=== PATIENT | female | born 1930 | race Caucasian/White ===

== ENCOUNTER 2017-01-09 17:36 | Observation (INO) | payer MEDICARE, BC ==
[~2017-01-09] VITALS: Ht 154.9 cm; Wt 77.7 kg
--- NOTE | ~2017-01-09 | HP ---
PATIENT: NINA CARBALLO MEDICAL RECORD: [id number] ACCOUNT: [id number] LOCATION:[id number] : 32 ADMISSION DATE: 01/09/17 HISTORY AND PHYSICAL EXAMINATION DATE OF ADMISSION: 01/09/2017 CHIEF COMPLAINT: Fatigue and anemia. HISTORY OF PRESENT ILLNESS: This is an 86-year-old female, who was admitted to [facility] in August of the last year with fatigue, near syncope and microcytic anemia. Her hemoglobin was 5.1 and hematocrit 18.8 with MCV of 73. At that time, she was found to have iron level of 10 and a TIBC greater than 500. She was given a transfusion of packed red blood cells. She had an EGD that was essentially unremarkable. She had heme-positive stool. She then underwent a colonoscopy on September 02 showing 2 small polyps. No other sign of bleeding and she was discharged home, only to come back later in the day with abdominal pain and at that time, a CT of the abdomen showed a large amount of free air throughout the abdomen and suggestion of bowel perforation. She was treated nonsurgically and did well with this. I referred her to Dr. Patterson in late September. She saw him the of this year and she has undergone a weekly iron treatments and then unfortunately, her hemoglobin has gone from 9.2 ____ in September down to 7.3. Her MCV is normal. She did have symptomatic anemia and because this it is Thursday evening, was unable to get her transfused in outpatient. We will admit her to observation to give her blood transfusion now. PAST MEDICAL AND SURGICAL HISTORY: Diverticular abscess in 2012. She underwent a hand-assisted laparoscopic colectomy by Dr. Crawford. She had an appendectomy in 1951. Complete hysterectomy in 1983 and right rotator cuff tear in 2010. ALLERGIES: CIPRO CAUSES TENDINITIS. CURRENT MEDICATIONS: Aspirin 81 mg a day, omeprazole 20 mg a day. She was recently started on Augmentin 500 mg 3 times a day for a dental infection. SOCIAL HISTORY: in 2010. She is a retired lab specialist. HABITS: Never smoked. No alcohol or drugs. FAMILY HISTORY: Father at 88 of laryngeal cancer. Mother at 88 of colon cancer. Her sister at 72 of a brain tumor and brother with heart disease and some sort of cancer. REVIEW OF SYSTEMS: GENERAL: No major weight changes. HEENT: No sinus or allergy problems. RESPIRATORY: No history of emphysema or asthma. CARDIAC: She has had some arrhythmia, followed by Dr. Shelley. GASTROINTESTINAL: As above, she underwent a diverticular abscess 3 years ago and in the last years, EGD and colonoscopy. MUSCULOSKELETAL: Right rotator cuff tear that was repaired. NEUROLOGIC: No seizures or migraine headaches. PSYCHIATRIC: No depression or melancholia. PHYSICAL EXAMINATION: HISTORY AND PHYSICAL [id number] NINA CARBALLO VITAL SIGNS: Temperature 98.1, pulse 79, respirations 20, blood pressure 123/62. She does not appear in acute distress. GENERAL: She is pale looking. She cannot walk very far due to fatigue. HEENT: Unremarkable. NECK: Supple. No bruit. HEART: Regular rate and rhythm without murmur. LUNGS: Clear. ABDOMEN: Soft, flat, nontender. EXTREMITIES: No edema. LABORATORY DATA: CBC in our office showed a white count 7000, hemoglobin 7.3, hematocrit 25.2, MCV is 81, platelets numbered at 298,000. Basic metabolic panel done in the hospital is essentially unremarkable. LFTs were okay. ASSESSMENT: 1. Symptomatic anemia. 2. History of iron deficiency anemia, treated with iron by Dr. Patterson. PLAN: We will type and cross, transfuse 2 units packed red blood cells and hopefully go home tomorrow to follow back up with Dr. Patterson next week. Other tests or procedures as warranted. TRANSINT:[id number] Voice Confirmation ID: [id number] DOCUMENT ID: [id number] YARELY MONTES MD CC: [id number] DICTATION DATE: 01/09/172118 [place] REPRESENTATIVE: 01/09/172233 ADM IN [place] [id number] [place] [id number]
[~2017-01-09 17:36] MED LIST: BAYER CHEWABLE81 MG PO; METOPROLOL TART25 MG PO; NIFEREX-150 CAP1 CA3 PO; OMEPRAZOLE20 M1 PO; XANAX0.25 MG PO
[2017-01-09 18:16] VITALS: BP 122/58; Ht 154.9 cm; Wt 77.7 kg
--- NOTE | 2017-01-09 19:30 | NUR ---
PT RECEIVED SITTING UP IN BED WATCHING TELEVISION WITH DAUGHTER AT BED SIDE. PT IS ALERT AND ORIENTED X4. SEE SHIFT ASSESSMENTS. IV SALINE LOCKED NOTED TO RIGHT WRIST, DRESSING CLEAN, DRY, AND INTACT, NO REDNESS OR EDEMA NOTED TO SITE. PT DENIES OR NEEDS AT THIS TIME. CALL LIGHT AND H2O IN PT REACH. BED IN LOW POSITION. SIDE RAILS UP X2.
[2017-01-09 19:31] LABS: ALBUMIN 3.3 g/dL (3.4-5.0); ANION GAP 12.5 mmol/L (8-16); BILIRUBIN - TOTAL 0.22 mg/dL (0.2-1.3); CARBON DIOXIDE 27.5 mmol/L (21.0-32.0); CREATININE - SERUM 0.9 mg/dL (0.6-1.3); PROTEIN - SERUM 6.2 g/dL (6.4-8.2)
[2017-01-09 20:00] VITALS: BP 123/62
--- NOTE | 2017-01-09 21:30 | NUR ---
PT SITTING UP IN BED WATCHING TELEVISION. NO S/S OF DISTRESS NOTED. RESP EVEN AND UNLABORED. PT DENIES PAIN OR NEEDS AT THIS TIME. PT REFUSES 2100 AUGMENTIN, STATES SHE TOOK DOSE ALREADY FROM HOME SUPPLY. STATES THAT AUGMENTIN WAS ORIGINALLY PROSCRIBED BY HER DENTIST AND SHE HAS COMPLETED THE COURSE. CALL LIGHT AND H2O IN PT REACH. BED IN LOW POSITION. SIDE RAILS UP X2.
--- NOTE | 2017-01-09 23:30 | NUR ---
PT SITTING UP IN BED WATCHING TELEVISION. PT CURRENTLY RECEIVING PRBC THROUGH IV TO RIGHT WRIST. NO S/S OF DISTRESS NOTED. VITAL SIGNS BEING MONITORED PER PROTOCOL. PLEASANT MOOD NOTED AT THIS TIME. PT AWARE OF ORDERS TO COLLECT STOOL FOR OCCULT, PT STATES, "I WILL LET YOU KNOW WHEN I HAVE A BOWEL MOVEMENT. RIGHT NOW I DON'T FEEL LIKE I NEED TO GO." CALL LIGHT AND H2O IN PT REACH. SIDE RAILS UP X2. BED IN LOW POSITION.
--- NOTE | 2017-01-10 01:30 | NUR ---
PT SITTING UP IN BED WATCHING TELEVISION. NO S/S OF DISTRESS NOTED. PT CONTINUES TO RECEIVED PRBC THROUGH IV TO RIGHT WRIST. VITAL SIGNS OBTAINED PER PROTOCOL. PLEASANT MOOD NOTED AT THIS TIME. CALL LIGHT AND H2O IN PT REACH. BED IN LOW POSITION. SIDE RAILS UP X2.
--- NOTE | 2017-01-10 03:30 | NUR ---
PT CONTINUES WITH BLOOD TRANSFUSION. NO S/S OF DISTRESS NOTED. RESPIRATIONS EVEN AND UNLABORED. PT ABLE TO VOICE NEEDS, NO COMPLAINTS OR NEEDS VOICED AT THIS TIME. ATTEMPTED TRANSFUSION RATE @ 125, PT C/O PAIN/DISCOMFORT TO IV SITE AND FEAR OF VEIN "BLOWING". TRANSFUSION LOWERED TO 100, PT STATES IV SITE FELT BETTER.
[2017-01-10 04:00] VITALS: BP 117/69
--- NOTE | 2017-01-10 04:00 | NUR ---
PATIENT SLEEPING WITH NO DISTRESS NOTED. CALL LIGHT WITHIN REACH.
--- NOTE | 2017-01-10 05:15 | NUR ---
PT TRANSFUSION STOPPED D/T TRANSFUSION REACHING 4 HOURS. 1/4 BAG NOTED TO BE LEFT. SALINE NOTED TO BE UNCLAMPED. NOTIFIED LAB, INSTRUCTED TO DISPOSE OF REMAINING BLOOD IN SHARPS. PT APPEARS TO BE UPSET. STATES, "I CAN'T PRODUCE MY OWN BLOOD. EVERY LITTLE BIT COUNTS!" THIS THREAD DRAWER EXPLAINED TO PT THAT BLOOD TRANSFUSION COULD NOT GO LONGER THAN 4 HOURS. PT VERBALIZED UNDERSTANDING. PT CONTINUES TO APPEAR UPSET AND STATES, "I WANT THE DOCTOR TO KNOW HOW MUCH BLOOD IS LEFT IN THAT BAG." INFORMED PT THAT EXACT AMOUNT COULD NOT BE MEASURED BUT VOLUME INFUSED IS RECORDED. PT VERBALIZED UNDERSTANDING. INFORMED PT THAT DOCTOR WILL BE NOTIFIED AND LABS WILL BE DRAWN WELL. PT VERBALIZED UNDERSTANDING. CALL LIGHT AND H2O IN PT REACH. BED IN LOW POSITION. SIDE RAILS UP X2.
[2017-01-10 07:41] LABS: BASOPHILS 1.2 % (0.0-2.0); EOSINOPHILS 4.4 % (0-7); HEMATOCRIT 29.2 % (36.0-48.0); HEMOGLOBIN 9.2 g/dL (12-16); IMMATURE GRANULOCYTES 0.5 % (0-5); LYMPHOCYTES 29.2 % (15-50); MCH 25.3 pg (26.0-34.0); MCHC 31.5 g/dL (31.0-37.0); MCV 80.2 fL (80.0-100.0); MEAN PLATELET VOLUME 9.4 fL (7.4-10.4); MONOCYTES 9.7 % (2-11); RBC 3.64 10x6/uL (4.00-5.40); RDW 16.3 % (11.5-14.5); WBC 4.3 10x3/uL (4.8-10.8)
[2017-01-10 07:47] LABS: PLATELET COUNT 214 10x3/uL (130-400)
--- NOTE | 2017-01-10 07:59 | NUR ---
PATIENT AWAKE/ORIENT X4. RIGHT WRIST SALINE LOCKED. DENIES ANY PAIN/DISC AT THIS TIME. NEEDS STOOL FOR OCCULT BLOOD
[2017-01-10 08:38] VITALS: BP 124/74; BP 128/47
--- NOTE | 2017-01-10 09:19 | NUR ---
PRN ATIVAN GIVEN FOR ANXIEITY
--- NOTE | 2017-01-10 10:00 | NUR ---
DR MONTES INTO SEE PATIENT. DISCHARGE INSTRUCTIONS GIVEN
--- NOTE | 2017-01-10 12:31 | NUR ---
PATIENTS DAUGHTER HERE TO TAKE PATIENT HOME. DISCHARGE INSTRUCTIONS GONE OVER WITH PATIENT AND DAUGHTER. PATIENT HELPED OUT TO CAR BY STAFF
== END 2017-01-10 12:33 | disposition home or self-care (01) ==
LOC: D.MS 17:36 → OBSVTIME 17:36 → D.MS 01-10 12:33
PROVIDERS: ADMIT Family Medicine
DX: D64.9 Anemia, unspecified (principal)

== ENCOUNTER 2017-02-12 12:51 | Outpatient (CLI) | payer MEDICARE, BC ==
[2017-02-12] MEDS ORDERED: LOPRESSOR25 MG PO (15:08)
== END 2017-02-12 21:44 | disposition home or self-care (01) ==
LOC: D.LAB 12:51 → D.M2 20:10
DX: D50.9 Iron deficiency anemia, unspecified (principal)

== ENCOUNTER → 2017-02-19 08:59 | Outpatient (CLI) | payer MEDICARE, BC ==
[~2017-02-19 08:59] MED LIST changes: +LOPRESSOR25 MG PO
[2017-02-19 09:17] LABS: EOSINOPHILS 2.8 % (0-7); HEMATOCRIT 30.9 % (36.0-48.0); HEMOGLOBIN 9.2 g/dL (12-16); IMMATURE GRANULOCYTES 0.2 % (0-5); LYMPHOCYTES 25.9 % (15-50); MCH 23.5 pg (26.0-34.0); MCHC 29.8 g/dL (31.0-37.0); MCV 78.8 fL (80.0-100.0); MEAN PLATELET VOLUME 9.7 fL (7.4-10.4); MONOCYTES 7.3 % (2-11); NEUTROPHILS 62.8 % (40-80); PLATELET COUNT 209 10x3/uL (130-400); RBC 3.92 10x6/uL (4.00-5.40); RDW 19.1 % (11.5-14.5)
== END | disposition home or self-care (01) ==
LOC: D.LAB 08:59 → D.RAD 09:30
PROVIDERS: Internal Medicine Gastroenterology
DX: D64.9 Anemia, unspecified (principal)

== ENCOUNTER 2017-03-03 07:19 | Outpatient (CLI) | payer MEDICARE, BC ==
[~2017-03-03] VITALS: Ht 154.9 cm; Wt 77.3 kg
[2017-03-03 08:17] VITALS: BP 106/59; Ht 154.9 cm; Wt 77.3 kg
--- NOTE | 2017-03-03 09:35 | NUR ---
PATIENT TOLERATING BLOOD TRANSFUSION WITHOUT DIFFICULTY, LYING IN BED, DENIES COMPLAINTS OR NEEDS, BLOOD TRANSFUSING TO LEFT HAND PIV AT 175 CC/HR CURRENTLY
--- NOTE | 2017-03-03 13:25 | NUR ---
POST TRANSFUSION INSTRUCTIONS REVIEWED WITH PATIENT, PATIENT DENIES ANY UNTOWARD SYMPTOMS, NO SIGNS OF DYSPNEA, FEVER, OR BLEEDING. LEFT HAND PIV DC'D WITH TIP INTACT. PATIENT DISCHARGED HOME AMBULATORY WITH DAUGHTER
== END 2017-03-03 13:25 | disposition home or self-care (01) ==
LOC: D.OPS 07:19
DX: D64.9 Anemia, unspecified (principal)

== ENCOUNTER → 2017-03-20 10:56 | Outpatient (CLI) | payer MEDICARE, BC ==
[2017-03-03 08:17] VITALS: BMI 32.2
== END | disposition home or self-care (01) ==
LOC: D.US 10:56 → D.CT 13:00
DX: D50.9 Iron deficiency anemia, unspecified (principal)

== ENCOUNTER 2017-03-31 06:24 | Outpatient (CLI) | payer MEDICARE, BC ==
[~2017-03-31] VITALS: Ht 154.9 cm; Wt 75.0 kg
[2017-03-31 07:23] LABS: HEMATOCRIT 32.4 % (36.0-48.0); HEMOGLOBIN 10.3 g/dL (12-16); LYMPHOCYTES 26.5 % (15-50); MCH 28.5 pg (26.0-34.0); MCHC 31.8 g/dL (31.0-37.0); MCV 89.8 fL (80.0-100.0); NEUTROPHILS 64.2 % (40-80); PLATELET COUNT 214 10x3/uL (130-400); RBC 3.61 10x6/uL (4.00-5.40); RDW 28.1 % (11.5-14.5); WBC 3.7 10x3/uL (4.8-10.8)
[2017-03-31 07:26] LABS: APTT 33.1 SECONDS (22.8-39.4); INR 1.07 (0.85-1.17); PROTIME 13.7 SECONDS (11.6-15.0)
[2017-03-31 07:27] LABS: ANION GAP 11.8 mmol/L (8-16); CALCIUM 9.5 mg/dL (8.5-10.1); CARBON DIOXIDE 26.3 mmol/L (21.0-32.0); CREATININE - SERUM 0.8 mg/dL (0.6-1.3); POTASSIUM - SERUM 4.1 mmol/L (3.5-5.1)
[2017-03-31 07:38] VITALS: BP 106/50; Ht 154.9 cm; Wt 75.0 kg
--- NOTE | 2017-03-31 14:26 | NUR ---
VS TAKEN AND PLACE ON POST OP SHEET AND PLACE ON CHART
--- NOTE | 2017-03-31 16:12 | NUR ---
1515 IV DC WITH CATHER TIP INTACT
== END 2017-03-31 15:30 | disposition home or self-care (01) ==
LOC: D.CT 06:24
PROVIDERS: General Practice
DX: R16.0 Hepatomegaly, not elsewhere classified (principal)

== ENCOUNTER → 2017-04-08 09:33 | Outpatient (CLI) | payer MEDICARE, BC ==
[2017-03-31 07:38] VITALS: BMI 31.2
== END | disposition home or self-care (01) ==
LOC: D.MRI 09:33
DX: D50.9 Iron deficiency anemia, unspecified (principal)

== ENCOUNTER 2017-04-10 07:23 | Outpatient (CLI) | payer MEDICARE, BC ==
[~2017-04-10] VITALS: Ht 154.9 cm; Wt 75.3 kg
[2017-04-10 08:04] LABS: BASOPHILS 1.1 % (0-2); EOSINOPHILS 4.8 % (0-7); HEMOGLOBIN 11.1 g/dL (12-16); IMMATURE GRANULOCYTES 0.3 % (0-5); MCH 29.5 pg (26.0-34.0); MCHC 31.7 g/dL (31.0-37.0); MCV 93.1 fL (80.0-100.0); MEAN PLATELET VOLUME 9.4 fL (7.4-10.4); MONOCYTES 7.6 % (2-11); NEUTROPHILS 61.2 % (40-80); RBC 3.76 10x6/uL (4.00-5.40); RDW 24.1 % (11.5-14.5); WBC 3.6 10x3/uL (4.8-10.8)
[2017-04-10 08:05] LABS: PLATELET COUNT 162 10x3/uL (130-400)
[2017-04-10 08:14] LABS: ANION GAP 13.6 mmol/L (8-16); APTT 32.4 SECONDS (22.8-39.4); CALCIUM 9.7 mg/dL (8.5-10.1); CARBON DIOXIDE 24.5 mmol/L (21.0-32.0); CREATININE - SERUM 0.8 mg/dL (0.6-1.3); INR 1.01 (0.85-1.17); POTASSIUM - SERUM 4.1 mmol/L (3.5-5.1); PROTIME 13.1 SECONDS (11.6-15.0)
[2017-04-10 08:20] VITALS: BP 131/82; Ht 154.9 cm; Wt 75.3 kg
--- NOTE | 2017-04-10 13:36 | NUR ---
1145--ALL VITAL SIGNS CHARTED ON POST PROCEDURE VITAL SIGN SHEET IN CHART. NASRA BAILEY
--- NOTE | 2017-04-10 15:34 | NUR ---
1530--IV DC'D, PT UP TO DRESS AT THIS TIME. NASRA BAILEY
--- NOTE | 2017-04-10 15:38 | NUR ---
1540--DISCHARGE INSTRUCTIONS GIVEN, PT VERBALIZES UNDERSTANDING. PT OFF UNIT VIA IBIS. NASRA BAILEY
== END 2017-04-10 15:40 | disposition home or self-care (01) ==
LOC: D.OPS 07:23 → D.CT 10:00 → D.SP 10:00 → D.OPS 10:00 → D.SP 11:00 → D.OPS 15:40
PROVIDERS: Specialist
DX: K76.9 Liver disease, unspecified (principal); K21.9 Gastro-esophageal reflux disease without esophagitis; R00.0 Tachycardia, unspecified; D50.9 Iron deficiency anemia, unspecified; R53.83 Other fatigue; Z18.10 Retained metal fragments, unspecified; Z01.811 Encounter for preprocedural respiratory examination; Z01.812 Encounter for preprocedural laboratory examination

== ENCOUNTER 2017-05-12 06:43 | Inpatient (IN) | payer MEDICARE, BC ==
[2017-05-11 11:46] LABS: BASOPHILS 1.2 % (0-2); EOSINOPHILS 4.4 % (0-7); HEMATOCRIT 33.4 % (36.0-48.0); HEMOGLOBIN 10.9 g/dL (12-16); MCH 30.6 pg (26.0-34.0); MCHC 32.6 g/dL (31.0-37.0); MCV 93.8 fL (80.0-100.0); MEAN PLATELET VOLUME 9.1 fL (7.4-10.4); MONOCYTES 7.9 % (2-11); NEUTROPHILS 61.5 % (40-80); RBC 3.56 10x6/uL (4.00-5.40); RDW 16.4 % (11.5-14.5); WBC 4.3 10x3/uL (4.8-10.8)
[2017-05-11 11:47] LABS: PLATELET COUNT 207 10x3/uL (130-400)
[2017-05-11 11:59] LABS: CALC OSMOLALITY 282 mosm/kg (275-300); CALCIUM 8.9 mg/dL (8.5-10.1); CARBON DIOXIDE 23.6 mmol/L (21.0-32.0); CHLORIDE - SERUM 107 mmol/L (98-107); CREATININE - SERUM 0.6 mg/dL (0.6-1.3); GLUCOSE 99 mg/dL (74-106); POTASSIUM - SERUM 3.9 mmol/L (3.5-5.1); SODIUM 142 mmol/L (136-145); UREA NITROGEN 13 mg/dL (7-18); eGFR NON AFRICAN AMERICAN > 90 mL/min (90-120)
[2017-05-11 12:01] LABS: APTT 34.2 SECONDS (22.8-39.4); INR 1.05 (0.85-1.17); PROTIME 13.6 SECONDS (11.6-15.0)
[~2017-05-12] VITALS: Ht 154.9 cm; Wt 77.1 kg
[~2017-05-12 06:43] MED LIST changes: +VITAMIN B-121000 MCG PO
--- NOTE | 2017-05-12 07:54 | NUR ---
0754 PT STATES NO CHANGES IN HEALTH HISTORY ASSESSMENT SINCE INTERVIEWED 05/11/17. STATES LAST BM 05/12/17. Tiffanie LA R.N.
[2017-05-12 07:58] VITALS: BP 132/69; BMI 31.4
--- NOTE | 2017-05-12 15:07 | NUR ---
1505 REPORT PHONED TO SAHIL COTE RN.
--- NOTE | 2017-05-12 17:22 | NUR ---
1721 REPORT TO DAHLIA MONZON RN TO [id number] VIA [facility]
[2017-05-12 20:00] VITALS: BP 111/57
--- NOTE | 2017-05-12 20:00 | NUR ---
ASSESSMENT PER FLOWSHEET.IV PATENT LEFT HAND PF NS AT 125CC'S/HR SITE CLEAR. CRUSHER WET GROUND MICA DILAUDID 0.2MG Q10MIN W/4MG Q4H L/O. DAUGHTER IN ROOM DRESSING TO ABDOMEN C/D/I. SCD'S ON. SR UP X2 CALL LIGHT WITHIN REACH
--- NOTE | 2017-05-12 21:30 | NUR ---
HOB UP 35 DEGREES SR UP X2 CALL LIGHT WITHIN REACH. DENIES NEEDS.
[2017-05-13] VITALS: BP 106/58
--- NOTE | 2017-05-13 | NUR ---
PLACED ON BEDPAN VOIDS WELL TURNS SIDE TO SIDE. DAUGHTER IN ROOM.
--- NOTE | 2017-05-13 01:25 | NUR ---
C/O NAUSEA NO EMESIS SEEN ZOFRAN 4 MG IVP GIVEN FOR PAIN CONTROL.
[2017-05-13 01:42] VITALS: BMI 32.2
--- NOTE | 2017-05-13 03:27 | NUR ---
EYES CLOSED RESPIRATIONS WITH EASE AND UNLABORED.
[2017-05-13 03:47] VITALS: BP 107/58
[2017-05-13 05:19] LABS: BASOPHILS 0.2 % (0-2); EOSINOPHILS 0 % (0-7); HEMATOCRIT 28.1 % (36.0-48.0); HEMOGLOBIN 8.9 g/dL (12-16); IMMATURE GRANULOCYTES 0.2 % (0-5); LYMPHOCYTES 13.6 % (15-50); MCH 30.2 pg (26.0-34.0); MCHC 31.7 g/dL (31.0-37.0); MCV 95.3 fL (80.0-100.0); MEAN PLATELET VOLUME 9.4 fL (7.4-10.4); MONOCYTES 7.5 % (2-11); NEUTROPHILS 78.5 % (40-80); PLATELET COUNT 189 10x3/uL (130-400); RBC 2.95 10x6/uL (4.00-5.40); RDW 16.2 % (11.5-14.5)
[2017-05-13 05:20] LABS: WBC 5.5 10x3/uL (4.8-10.8)
[2017-05-13 05:37] LABS: CALC OSMOLALITY 280 mosm/kg (275-300); CALCIUM 8.4 mg/dL (8.5-10.1); CARBON DIOXIDE 23.7 mmol/L (21.0-32.0); CHLORIDE - SERUM 108 mmol/L (98-107); CREATININE - SERUM 0.6 mg/dL (0.6-1.3); GLUCOSE 123 mg/dL (74-106); POTASSIUM - SERUM 4.2 mmol/L (3.5-5.1); SODIUM 141 mmol/L (136-145); UREA NITROGEN 11 mg/dL (7-18); eGFR NON AFRICAN AMERICAN > 90 mL/min (90-120)
--- NOTE | 2017-05-13 06:40 | NUR ---
RESTING QUIETLY RESPIRATIONS WITH EASE AND UNLABORED.
--- NOTE | 2017-05-13 07:30 | NUR ---
REPORT RECEIVED FROM LYNN ROSE.
--- NOTE | 2017-05-13 07:30 | NUR ---
REPORT RCEIVED FROM LYNN ROSE. CALL LIGHT IN REACH.
[2017-05-13 08:42] VITALS: BP 121/58
--- NOTE | 2017-05-13 09:05 | NUR ---
ASSESSMENT COMPLETED. CALL LIGHT IN REACH. SCDs OT BLE. BED ALARM TURNED ON. DR. MONTES AND VISITO IN ROOM. AM MEDS ADMINISTERE. CALL LIGNT IN REACH. WILL CONTINUE WITH PLAN OF CARE.
--- NOTE | 2017-05-13 09:47 | NUR ---
REPOSITIONED ON [facility] ASS[facility] FROM DR. CARABALLO. INCENTIVE SPIROMETER IN USE. BED ALARM ON. [facility].
[2017-05-13 11:59] VITALS: BP 127/55
[2017-05-13 12:27] VITALS: Ht 154.9 cm; Wt 77.1 kg
--- NOTE | 2017-05-13 13:32 | NUR ---
TYLENOL IVPB. NGT RETAPED TO NOSE.
--- NOTE | 2017-05-13 14:55 | NUR ---
PATIENT ALERT IN BED WITH PHYSICAL THERAPY AT BEDSIDE. NO SIGNS OF DISTRESS NOTED. SIDE RAILS UP X2. BED IN LOW POSITION. CALL LIGHT IN REACH.
[2017-05-13 15:10] VITALS: BP 112/55
--- NOTE | 2017-05-13 19:15 | NUR ---
BEDSIDE REPORT RECEIVED AND CARE OF PT ASSUMED. PT LYING IN SEMI CRUZ'S POSITION WITH EYES CLOSED. IV IN LEFT HAND PATENT WITH NS INFUSING AT 125 ML / HR. SCRIPT WORKER / DILAUDID IN USE FOR PAIN CONTROL. WILL MONITOR CLOSELY FOR NEEDS.
[2017-05-13 20:00] VITALS: BP 123/63
--- NOTE | 2017-05-13 20:15 | NUR ---
HELD IVPB TYLENOL PT HAS REACHED MAXIMUM ALLOWED ACETAMINOPHEN FOR THIS 24 HOUR PERIOD.
--- NOTE | 2017-05-13 22:30 | NUR ---
ASSISTED PT UP TO USE BSC WITH DAUGHTER'S HELP. WILL CONTINUE TO MONITOR FOR NEEDS.
[2017-05-14] VITALS: BP 122/60
[2017-05-14 04:00] VITALS: BP 123/72
--- NOTE | 2017-05-14 07:45 | NUR ---
PT ASSESSMENT COMPLETE NO ACUTE DISTRESS NOTED NGT TO LEFT NARE TO LIS PATENT TO DARK BROWN LIQUID NOTED TO TUBING. O2 NC 2LPM UP WITH ASSIST TO BEDSIDE COMMODE FOR BRP. CALL LIGHT IN REACH SIDE RAILS UP X2 SCDS IN PLACE
[2017-05-14 08:09] VITALS: BP 136/60
--- NOTE | 2017-05-14 10:51 | NUR ---
PT COMPLAINS OF HEAVINESS IN HER CHEST STATES NOTHING MAKES BETTER OR WORSEAND IS NOT RADIATING HOWEVER PT STATES IT IS A NEW FEELING SHES NEVER HAD BEFORE. NEW ORDER FOR EKG NOW
[2017-05-14 11:44] VITALS: BP 126/67
--- NOTE | 2017-05-14 12:00 | NUR ---
PT FAMILY AT BEDSIDE PT UP IN CHAIR AT THIS TIME STATES LESS TIGHTNESS IN CHEST PT AWAKE AND ALERT AWAITING EKG RESULT.
--- NOTE | 2017-05-14 14:00 | NUR ---
PT AMBULATES WITH THERAPY STAFF 500 FT WITH STAND BY ASSIST. DENEIS PAIN OR TIGHTNESS IN CHEST. BACK TO BED WITH NO DIFFICULTY SCDS IN PLACE.
--- NOTE | 2017-05-14 14:02 | NUR ---
PT LAYING IN BED WITH NO VISABLE SIGNS OF PAIN OR DISCOMFORT. PT EXPRESSES NO NEEDS AT THIS TIME. ASSESSMENT DONE PER FLOWSHEET. BED IN LOW POSITION AND CALL LIGHT WITHIN REACH. WILL CONTINUE TO MONITOR.
[2017-05-14 15:25] VITALS: BP 139/64
--- NOTE | 2017-05-14 17:17 | NUR ---
PT UP IN CHAIR AT BEDSIDE AT THIS TIME ENCOURAGED TO USE IS AND RE EDUCATED ON PROPER TECHNIQUE FOR USE RETURNS DEMONSTRATION AND ENCOURAGED TO COUGH WITH DEEP BREATHING USING SPLINT PILLOW
--- NOTE | 2017-05-14 19:00 | NUR ---
BEDSIDE REPORT RECEIVED AND CARE OF PT ASSUMED. IV IN LEFT HAND PATENT WITH NS INFUSING AT 125 ML / HR. NG TUBE TO LEFT NARE TO LIS WITH BLACKISH DRAINAGE IN COLLECTION CANNISTER. WILL MONITOR CLOSELY FOR NEEDS. DAUGHTER IS AT BEDSIDE.
--- NOTE | 2017-05-14 19:43 | NUR ---
CALLED DR HERNANDEZ TO REPORT WHEEZING IN ALL LUNG MEDINA. RECEIVED ORDER TO REDUCE IV FLUID RATE TO 75 ML / HR AND DUONEB Q2 HR PRN.
--- NOTE | 2017-05-14 19:45 | NUR ---
CALLED RESPIRATORY TO GIVE PT UPDRAFT TX.
[2017-05-14 20:00] VITALS: BP 137/70
--- NOTE | 2017-05-14 21:39 | NUR ---
HELD HS IV TYLENOL DUE TO MAXIMUM ACETAMINOPHEN LEVEL REACHED FOR TODAY.
[2017-05-15] VITALS: BP 154/69
[2017-05-15 04:00] VITALS: BP 142/70
[2017-05-15 05:33] LABS: HEMATOCRIT 24.2 % (36.0-48.0); HEMOGLOBIN 7.8 g/dL (12-16); LYMPHOCYTES 9.3 % (15-50); MCH 29.8 pg (26.0-34.0); MCHC 32.2 g/dL (31.0-37.0); MCV 92.4 fL (80.0-100.0); NEUTROPHILS 83.8 % (40-80); PLATELET COUNT 152 10x3/uL (130-400); RBC 2.62 10x6/uL (4.00-5.40); RDW 15.3 % (11.5-14.5); WBC 4.6 10x3/uL (4.8-10.8)
[2017-05-15 05:44] LABS: CALC OSMOLALITY 276 mosm/kg (275-300); CALCIUM 8.5 mg/dL (8.5-10.1); CARBON DIOXIDE 22.9 mmol/L (21.0-32.0); CHLORIDE - SERUM 104 mmol/L (98-107); CREATININE - SERUM 0.5 mg/dL (0.6-1.3); GLUCOSE 103 mg/dL (74-106); MAGNESIUM - SERUM 1.7 mg/dL (1.8-2.4); PHOSPHOROUS 2.2 mg/dL (2.5-4.9); POTASSIUM - SERUM 3.1 mmol/L (3.5-5.1); SODIUM 140 mmol/L (136-145); UREA NITROGEN 8 mg/dL (7-18); eGFR NON AFRICAN AMERICAN > 90 mL/min (90-120)
--- NOTE | 2017-05-15 06:36 | NUR ---
ALL NEEDS MET DURING SHIFT. CONTINUE PLAN OF CARE.
--- NOTE | 2017-05-15 08:12 | OP ---
PATIENT NAME: NINA CARBALLO MEDICAL RECORD: [id number] :32 LOCATION:[id number] ADMISSION DATE:05/12/17 SURGEON: ERROL HERNANDEZ MD DATE OF OPERATION: 05/12/2017 PREOPERATIVE DIAGNOSES: 1. Small bowel cancer. 2. Gastroesophageal reflux disease. 3. 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 4. Supraventricular tachycardia. 5. Hypertension. 6. Hypercholesterolemia. 7. Diabetes mellitus. POSTOPERATIVE DIAGNOSES: 1. Small bowel cancer. 2. Gastroesophageal reflux disease. 3. 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 4. Supraventricular tachycardia. 5. Hypertension. 6. Hypercholesterolemia. 7. Diabetes mellitus. PROCEDURE: Exploratory laparotomy with small bowel resection times 2. SURGEON: Errol Hernandez MD REPORT OF PROCEDURE: The patient's abdomen was prepped and draped in sterile fashion. An upper midline incision was performed. Electrocautery was used to dissect through the subcutaneous tissues. Once in the abdominal cavity, we took down some adhesions of the omentum to the anterior abdominal wall. We were able to inspect the abdominal cavity and there was noted to be some large masses in the right lobe of the liver consistent with what was found on PET CT scans. Inspection of the patient's small bowel revealed a large collection of lymph nodes and a large mass with a near obstructing pattern in the proximal jejunum, we freed up. This was very close to the ligament of Treitz. We took down some of the adhesions of the ligament of Treitz to facilitate removal and reanastomosis. The small bowel was then transected proximally and distally to the mass and the mesentery was taken down with sequential clamp and tie technique. The mass was completely excised and sent off for permanent specimen labeled as proximal jejunum. The small bowel was then reanastomosed with a 45 blue load Endo-GABRIEL stapler in a irii-is-anit fashion. The enterotomies were closed off with a 30 blue load TA stapler and the suture line was oversewn with Lemberted 3-0 silks. The anastomosis appeared to be patent and large. We then inspected the remainder of the small bowel and found 2 other masses in the distal jejunum, which were in close proximity to each with no sign of any mesenteric adenopathy, but these masses were not mobile and were fixed in position in the lumen. Using a 55 blue load GABRIEL stapler, we transected the small bowel proximally and distally to these masses. The total length of the small bowel removed was 8 cm. The mesentery was then taken down with sequential clamp and tie technique using 3-0 silks. With the mass removed, it was labeled as distal jejunum and sent off for permanent specimen. We then oversewed the mesentery because there was some arterial bleeding present. This discontinued the bleeding. The small bowel was reanastomosed after making two small enterotomies and using a 55 blue load GABRIEL stapler for a [id number] OPERATIVE REPORT [id number] NINA CARBALLO anastomosis. The enterotomies were closed with a 30 blue load TA stapler and then oversewn with Lemberted 3-0 silks. The small bowel was placed back into the abdominal cavity, one last inspection showed no sign of any masses or lesions anywhere else causing any sort of bowel compromise. At this point, the abdomen was irrigated out thoroughly with normal saline and care was taken to make sure there was no sign of any active bleeding. The midline fascia was then closed with running #1 loop PDS times 2. The wound was then irrigated out with normal saline and reapproximated with interrupted 3-0 Vicryls. The skin was then closed with fran and dressed appropriately. COMPLICATIONS: None. CONDITION: Stable. ANESTHESIA: General endotracheal. BLOOD LOSS: 50 mL. TRANSINT:[id number] Voice Confirmation ID: [id number] DOCUMENT ID: [id number] ERROL HERNANDEZ MD at 0812 CC: MILTON KONG MD, YARELY MONTES MD and CRYSTAL RAMON [id number] DICTATION DATE: 05/12/17 1102 AUTOMATION CLERK: 05/12/17 1241 ADM IN [facility] [address] [place] [address]
[2017-05-15 08:32] VITALS: BP 155/65
[2017-05-15 12:38] VITALS: BP 160/68
--- NOTE | 2017-05-15 13:29 | NUR ---
NUTRITION MONITORING & EVAL CHART REVIEWED. PT REMAINS NPO S/P SURGERY. WILL CONTINUE TO MONITOR DIET ADVANCEMENT, PO INTAKE. RD FOLLOWING
[2017-05-15 16:12] VITALS: BP 141/59
--- NOTE | 2017-05-15 19:45 | NUR ---
PT IS LYING IN BED WITH HOB RAISED 20, NG TUBE ON LOW INTERMITTEN SUCTION, WORKING PROPERLY. PT IS READY TO HAVE TUBE OUT, UNDERSTANDS FLATULANCE AND STOOL MUST OCCUR TO BE ABLE TO REMOVE ST FROM ADDRESS BED IN LOW POSITION CALL LIGHT IN REACK
[2017-05-15 20:00] VITALS: BP 146/62
--- NOTE | 2017-05-15 23:10 | NUR ---
PT DAUGHTER INQURED ON TYLENOL THAT PT HAS ORDERED Q6 AND SOMETHING TO HELP PT REST TONIGHT. AFTER REVIEW OF CHART I SEE WHERE TYLENOL FELL OFF THE MAR AT 1059. PAGED DR. HERNANDEZ IN REGARDS TO RETARTING TYLENOL AND POSSIBLE ATIVAN .5MG. TO AID WITH HER NERVOUSNESS AND ANXIETY AND TO HELP PT SLEEP. BED IN LOW POSITION CALL LIGHT IN REACH
--- NOTE | 2017-05-15 23:45 | NUR ---
PT IS STILL RESTLESS, NO CALL BACK FROM DR TEJADA, WENT AHEAD AND RESTARTED IV TYLENOL AND .5MG OF ATIVAN FOR PT JITTERY. DAUGHTER WAS VERY CONCERNED THAT SO MANY OF HER ORDERS WERE D/C. EXPLAINED DURING ADMITTATCE, ACTUAL LENGTH OF TIME MAY NOT BE KNOWN SOR A DATE IS GENERARATED AFTER THAT DEPENDING ON PT WE MAY EXTEND IT, CONTINUE WITH PLAN OF CARE
[2017-05-16] VITALS: BP 128/64
[2017-05-16 04:00] VITALS: BP 130/67
--- NOTE | 2017-05-16 05:07 | NUR ---
PT IS ASLEEP WITH NG TUBE IN PLACE. DAUGHTER IS AT THE BEDSIDE AND STATED MOM HAD ONLY BEEN ASLEEP FOR ABOUT A HALF AN HOUR AND WAS AWAKE SINCE YESTERDAY. NO DISTRESS IS NOTED AND THERE ARE EASY SNORING RESPIRATIONS.
[2017-05-16 05:26] LABS: BASOPHILS 0.4 % (0-2); EOSINOPHILS 1.3 % (0-7); HEMATOCRIT 27.5 % (36.0-48.0); LYMPHOCYTES 11.9 % (15-50); MCH 29.8 pg (26.0-34.0); MCHC 32.7 g/dL (31.0-37.0); MCV 91.1 fL (80.0-100.0); MEAN PLATELET VOLUME 8.7 fL (7.4-10.4); NEUTROPHILS 77.4 % (40-80); PLATELET COUNT 173 10x3/uL (130-400); RBC 3.02 10x6/uL (4.00-5.40); RDW 14.9 % (11.5-14.5); WBC 4.5 10x3/uL (4.8-10.8)
[2017-05-16 05:39] LABS: CHLORIDE - SERUM 104 mmol/L (98-107); CREATININE - SERUM 0.5 mg/dL (0.6-1.3); MAGNESIUM - SERUM 1.7 mg/dL (1.8-2.4); PHOSPHOROUS 1.9 mg/dL (2.5-4.9); SODIUM 141 mmol/L (136-145); UREA NITROGEN 6 mg/dL (7-18); eGFR NON AFRICAN AMERICAN > 90 mL/min (90-120)
[2017-05-16 05:41] LABS: CALC OSMOLALITY 281 mosm/kg (275-300); GLUCOSE 151 mg/dL (74-106)
[2017-05-16 05:43] LABS: CARBON DIOXIDE 31.1 mmol/L (21.0-32.0); POTASSIUM - SERUM 2.7 mmol/L (3.5-5.1)
--- NOTE | 2017-05-16 07:15 | NUR ---
PATIENT IN BED WITH NO COMPLAINTS AT THIS TIME. IV INTACT. CALL LIGHT WITHIN REACH.
--- NOTE | 2017-05-16 07:30 | NUR ---
REPORT RECEIVED FROM TECHNICAL MANAGER NURSE. CALL LIGHT IN REACH.
[2017-05-16 07:45] VITALS: BP 149/77
--- NOTE | 2017-05-16 09:15 | NUR ---
ASSESSMENT COMPLETED. CALL LIGHT IN REACH. IN ROOM. WILL CONTINUE WITH PLAN OF CARE.
--- NOTE | 2017-05-16 11:20 | NUR ---
DENIES NEEDS AT THIS TIME. CALL LIGHT IN REACH.
[2017-05-16 12:21] VITALS: BP 132/69
--- NOTE | 2017-05-16 13:41 | NUR ---
IV TYLENOL PER ORDER. VISITOR AT BEDSIDE. CALL LIGHT IN REACH.
--- NOTE | 2017-05-16 15:20 | NUR ---
VISITOR AT BEDSIDE. NO NEEDS VOICED AT THIS TIME. CALL LIGHT IN REACH.
[2017-05-16 15:54] VITALS: BP 127/70
--- NOTE | 2017-05-16 17:50 | NUR ---
AMBULATING IN HALLWAY WITH DAUGHTER. TOLERATING WELL.
[2017-05-16 19:00] VITALS: BP 121/58
--- NOTE | 2017-05-16 19:10 | NUR ---
REC REPORT, ASSUMED CARE OF PATIENT. ALERT/AWAKE ORIENTED X 4. SMILING TALKING TO HER DAUGHTER. DENIES ANY NEEDS OR DISCOMFORTS. IV IN L HAND WITH IVF INFUSING AT 75 ML/HR. HAS MODELING ANALYST WITH DILAUDID FOR PAIN CONTROL. ABD SUTURES INTACT. ORIENTED TO CALL LIGHT FOR ANY NEEDS.
--- NOTE | 2017-05-16 19:10 | NUR ---
LARGE BM. IN SHOWER AT THIS TIME. LINENS CHANGED. EVS IN ROOM TO CLEAN UP. DAUGHTER AT BEDSIDE. CALL LIGHT IN REACH.
--- NOTE | 2017-05-16 21:55 | NUR ---
ADMIN 6TH BAG OF KCL 10 MEQ IV. REQUESTED LIGHTS OFF AND DOOR CLOSED TO SLEEP.
--- NOTE | 2017-05-17 03:45 | NUR ---
RN BONE MARROW TRANSPLANT PRESENT IN ROOM TAKING VS. DENIES PAIN OR ANY NEEDS.
[2017-05-17 04:00] VITALS: BP 115/63
[2017-05-17 07:26] LABS: EOSINOPHILS 5.9 % (0-7); HEMATOCRIT 25.7 % (36.0-48.0); HEMOGLOBIN 8.4 g/dL (12-16); IMMATURE GRANULOCYTES 0.3 % (0-5); LYMPHOCYTES 18.2 % (15-50); MCH 29.9 pg (26.0-34.0); MCHC 32.7 g/dL (31.0-37.0); MCV 91.5 fL (80.0-100.0); MEAN PLATELET VOLUME 8.9 fL (7.4-10.4); MONOCYTES 10.7 % (2-11); NEUTROPHILS 63.9 % (40-80); PLATELET COUNT 166 10x3/uL (130-400); RBC 2.81 10x6/uL (4.00-5.40); RDW 15.1 % (11.5-14.5)
[2017-05-17 07:27] LABS: WBC 3.1 10x3/uL (4.8-10.8)
[2017-05-17 07:46] VITALS: BP 135/70
[2017-05-17 07:55] LABS: CALC OSMOLALITY 282 mosm/kg (275-300); CALCIUM 8.9 mg/dL (8.5-10.1); CARBON DIOXIDE 29.8 mmol/L (21.0-32.0); CHLORIDE - SERUM 108 mmol/L (98-107); CREATININE - SERUM 0.4 mg/dL (0.6-1.3); GLUCOSE 130 mg/dL (74-106); MAGNESIUM - SERUM 1.6 mg/dL (1.8-2.4); PHOSPHOROUS 2.2 mg/dL (2.5-4.9); SODIUM 142 mmol/L (136-145); UREA NITROGEN 7 mg/dL (7-18); eGFR NON AFRICAN AMERICAN > 90 mL/min (90-120)
[2017-05-17 07:57] LABS: POTASSIUM - SERUM 3.5 mmol/L (3.5-5.1)
--- NOTE | 2017-05-17 08:22 | NUR ---
AWAKE AND ALERT. ORIENTED X3. NO C/O AT THIS TIME. LUNGS ARE CLEAR BILATERALLY, OCCASSIONAL DRY COUGH NOTED. SKIN IS INTACT WITHOUT REDNESS EXCEPT INCISION TO MID ABDOMEN WHICH IS CLEAN DRY AND WELL APPROXIMATED WITH CLIPS INTACT. IV TO LEFT FOREARM PATENT WITHOUT REDNESS AT INSERTION SITE. UP TO BR IWTH SBA PASSED GAS. DENIES NEEDS AT THIS TIME.
--- NOTE | 2017-05-17 10:09 | NUR ---
RESTING QUIETLY IN BED. FAMILY AT BEDSIDE.
[2017-05-17 14:08] VITALS: BP 137/60
--- NOTE | 2017-05-17 18:34 | NUR ---
ATE ABOUT HALF OF REGULAR TRAY FOR SUPPER. NO C/O INCREASED PAIN OR NAUSEA. NO CHANGES NOTED.
[2017-05-17 19:00] VITALS: BP 110/49
--- NOTE | 2017-05-17 23:57 | NUR ---
INITIAL ROUNDS COMPLTED AT 1920 HRS. PT DENIED ANY DISCOMFORT. ASSESSMENT COMPLETED AT 1954 RHS. VSS. IV TO L HAND WITH NS WITH 20 KCL AT 75CC/HR. IV PATENT. ALSO HAS DILAUDID MOTION PICTURE PROJECTIONIST 0.2MG Q 10 MINUTES WITH NO LOCKOUT. LUNGS DIMINISHED IN BASES BILAT. MIDLINE INCISION CLEAN, DRY AND INTACT WITH JULIA NOTED. PT CURRENTLY AWAKE AND ORIENTED, DENIES ANY DISCOMFORT. WILL CONTINUE TO MONITOR.
[2017-05-18] VITALS: BP 126/50
--- NOTE | 2017-05-18 02:43 | NUR ---
PT RESTING WITH EYES CLOSED. RESP EVEN AND REGULAR. SR UP X2,CALL LIGHT WITHIN REACH.
[2017-05-18 04:00] VITALS: BP 189/96
--- NOTE | 2017-05-18 05:16 | NUR ---
PT RESTING WITH EYES CLOSED. RESP EVEN AND REGULAR. SR UP X2, CALL LIGHT WITHIN REACH..
--- NOTE | 2017-05-18 06:51 | NUR ---
VSS THROUGHOUT NGIHT. PT DENIED ANY DISCOMFORT. NEEDS MET; WILL CONTINUE TO MONITOR.
--- NOTE | 2017-05-18 08:09 | NUR ---
PT ASSESSMENT COMPLETE AWAKE AND ALERT ORINETED X3 LUNGS WITH NO MARY EXPIRATORY WHEEZE TO BILAT UPPER LOBES CLEARS WITH COUGH. NO ACUTE DISTRESS NOTED. ABDOMINAL INCISION WITH CLIPS NOTED MIDLLINE CLEAN WITH NO DRAINAGE NTOED.
[2017-05-18 08:24] VITALS: BP 127/61
--- NOTE | 2017-05-18 09:46 | NUR ---
PT TOLERATED MEDS PER PEG WELL NO DISTRESS NOTED RESIDUAL CHECK WAS LESS THAN 40 ML WILL MONITOR DAUGHTER REMAINS AT BEDSIDE CALL LIGHT INREACH SIDE RAILS UP X 2
--- NOTE | 2017-05-18 11:16 | NUR ---
AWAKE AND ALERT AT THIS TIME. INCISION TO ABDOMEN WELL APROXIMATED WITH JULIA INTACT AND NO DRAINAGE NOTED. LUNG SOUNDS CLEAR IN ALL LOBES BILATERALLY. CALL LIGHT IN REACH, DENIES NEEDS AT THIS TIME. WILL CONTINUE WITH PLAN OF CARE.
[2017-05-18 12:24] VITALS: BP 126/62
[2017-05-18] MEDS ORDERED: HYDROCODON-ACE1 EAC7 PO (14:32)
--- NOTE | 2017-05-18 14:55 | NUR ---
Patient Name: NINA CARBALLO Admission Status: Elective Accout number: [id number] Admission Date: 05-12-2017 : 1932 Admission Diagnosis:MALIGNANT NEOPLASM OF JEJUNUM Attending: DIANA Current LOS: 6 Anticipated DC Date: 05-18-2017 Planned Disposition: Home Primary Insurance: MEDICARE A & B Discharge Planning Comments: CM MET WITH PATIENT REGARDING D/C NEEDS AND PLANS. PATIENT STATED SHE LIVES WITH HER SPOUSE AND HER DAUGHTER (SOFIE) WILL DRIVE HER HOME AT DISCHARGE. PATIENT STATED THERE ARE NO STEPS AND STAIRS AT HER HOME. PATIENT IS INDEPENDENT WITH HER CARE AND HAS NO DME AT HOME. PATIENTS PCP IS DR. MONTES AND PHARMACY IS [facility]. PATIENT STATED SHE DOES NOT NEED HOME HEALTH AND NO OTHER NEEDS FOR DISCHARGE. CM WILL CONTINUE TO FOLLOW PATIENT WITH D/C NEEDS AND PLANS. PCP DR. JYOTI HAINES AT [facility] [phone] SOFIE (DAUGHTER) [phone] Softball Core Molder: Bhargavi Otero Is the patient Alert and Oriented? Yes 0 * How many steps to enter\exit or inside your home? 0 0 * PCP DR. MONTES 0 * Pharmacy [facility] 0 * Preadmission Environment Home with Family 0 * ADLs Independent 0 * Equipment None 0 * List name and contact numbers for known caregivers / representatives who currently or will assist patient after discharge: SOFIE (DAUGHTER) [phone] 0 * Community resources currently utilized None 0 * Additional services required to return to the preadmission environment? Yes 0 * Can the patient safely return to the preadmission environment? Yes 0 * Has this patient been hospitalized within the prior 30 days at any hospital? No 0 Grand Total: 0
--- NOTE | 2017-05-18 15:00 | NUR ---
CM REASSESSMENT NOTE: PATIENT IS DISCHARGING HOME TODAY/DAUGHTER DRIVING HER. PATIENT REFUSED HOME HEALTH AND HAD NO OTHER NEEDS FOR DISCHARGE.
--- NOTE | 2017-05-18 15:25 | NUR ---
PT GIVEN DISCHARGE INSTRUCTIONS EXPRESSED UNDERSTANDING PIV TO LEFT HAND D/C INTAC TOLERATED WELL. DAUGHTER HERE TO TRANSPORT FOR DISCHARGE LEFT IN WHEELCHAIR TO PRIVATE VEHICLE PER ASSIST OF THIS NURSE.
== END 2017-05-18 15:26 | disposition home or self-care (01) | DRG 330 ==
LOC: D.MS 06:43 → D.SDCHOLD 06:43 → D.MS 17:53
PROVIDERS: Anesthesiology; ADMIT Surgery
PROC: 0DBA0ZZ Excision of Jejunum, Open Approach (ICD-10-PCS; principal; 2017-05-12 08:45)
DX: C17.1 Malignant neoplasm of jejunum (principal); I47.1 Supraventricular tachycardia; K21.9 Gastro-esophageal reflux disease without esophagitis; I10 Essential (primary) hypertension; E78.00 Pure hypercholesterolemia, unspecified; E11.9 Type 2 diabetes mellitus without complications; D50.9 Iron deficiency anemia, unspecified

== ENCOUNTER 2017-07-03 06:32 | Day surgery (SDC) | payer MEDICARE, BC ==
[~2017-07-03] VITALS: Ht 154.9 cm; Wt 69.4 kg
[~2017-07-03 06:32] MED LIST changes: +HYDROCODON-ACE1 EAC7 PO
[2017-07-03] MEDS ORDERED: ZOFRAN4 MG PO (07:53)
[2017-07-03 07:55] VITALS: BP 156/87; Ht 154.9 cm; Wt 69.4 kg
[2017-07-03 08:05] LABS: HEMATOCRIT 36.3 % (36.0-48.0); HEMOGLOBIN 11.8 g/dL (12-16); MCH 28.2 pg (26.0-34.0); MCHC 32.5 g/dL (31.0-37.0); MCV 86.8 fL (80.0-100.0); MEAN PLATELET VOLUME 9.8 fL (7.4-10.4); RBC 4.18 10x6/uL (4.00-5.40); WBC 2.7 10x3/uL (4.8-10.8)
[2017-07-03 08:08] LABS: PLATELET COUNT 93 10x3/uL (130-400)
[2017-07-03 08:12] LABS: INR 1.15 (0.85-1.17); PROTIME 14.5 SECONDS (11.6-15.0)
[2017-07-03 08:16] LABS: CALC OSMOLALITY 287 mosm/kg (275-300); CALCIUM 9.4 mg/dL (8.5-10.1); CARBON DIOXIDE 23.8 mmol/L (21.0-32.0); CHLORIDE - SERUM 110 mmol/L (98-107); CREATININE - SERUM 0.7 mg/dL (0.6-1.3); GLUCOSE 111 mg/dL (74-106); POTASSIUM - SERUM 4.2 mmol/L (3.5-5.1); SODIUM 144 mmol/L (136-145); UREA NITROGEN 12 mg/dL (7-18); eGFR NON AFRICAN AMERICAN 84 mL/min (90-120)
[2017-07-03 08:48] LABS: BASOPHILS 1 % (0-2); EOSINOPHILS 3 % (0-7); LYMPHOCYTES 35 % (15-50); MONOCYTES 9 % (2-11); NEUTROPHILS 52 % (40-80); PLATELET ESTIMATE DECREASED
[2017-07-03] MEDS ORDERED: HYDROCODON-ACE1 EAC7 PO (09:46)
--- NOTE | 2017-07-03 09:53 | NUR ---
TALKED WITH ANESTHESIA ABOUT HEART RATE OF 52. 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 WILL CONTINUE TO MONITOR.
--- NOTE | 2017-07-03 10:00 | NUR ---
OPA OUT AT THIS TIME.
--- NOTE | 2017-07-03 14:02 | OP ---
PATIENT NAME: NINA CARBALLO MEDICAL RECORD: [id number] :34 LOCATION:D.OPS ADMISSION DATE: SURGEON: YUMIKO HERNANDEZ MD DATE OF OPERATION: 07/03/2017 PREOPERATIVE DIAGNOSIS: Metastatic small bowel cancer. POSTOPERATIVE DIAGNOSIS: Metastatic small bowel cancer. PROCEDURES: 1. Left subclavian vein PowerPort placement. 2. Fluoroscopic interpretation. SURGEON: Yumiko Hernandez MD. OPERATIVE PROCEDURE: The patient's left chest was prepped and draped in sterile fashion. A needle was used to cannulate the left subclavian vein. The guidewire was advanced with ease. Fluoro was used to note that the wire was in good position in the venous system. We then made an incision in the left upper lateral chest and made a subcutaneous pouch overlying the pectoral fascia. A catheter was tunneled between this past the wire exit site. The port was then sutured to the pectoral fascia using interrupted 2-0 Prolenes times 2. The catheter was cut with a beveled tip at 25 cm. The dilator trocar device was then placed over the wire and the wire and dilator were removed. The catheter tip was advanced through the trocar with ease and the trocar was removed. Fluoro was used to note that the catheter tip is resting in good position at the right atrial superior vena caval junction. The catheter aspirated nonpulsatile dark blood and flushed easily with heparinized saline. Subcutaneous tissues were reapproximated with interrupted 3-0 Vicryl and the skin was closed with subcutaneous 5-0 Monocryl. COMPLICATIONS: None. CONDITION: Stable. ANESTHESIA: General endotracheal. BLOOD LOSS: Minimal. TRANSINT:[id number] Voice Confirmation ID: [id number] DOCUMENT ID: [id number] YUMIKO HERNANDEZ MD at 1402 CC: CRYSTAL RAMON MD [id number] DICTATION DATE: 07/03/17 0950 FINE ARTS TEACHER: 07/03/17 1203 REG [facility] [address] [place] [address]
== END 2017-07-03 11:45 | disposition home or self-care (01) ==
LOC: D.OPS 06:32 → D.PAN 12:00
PROVIDERS: Anesthesiology
DX: C17.9 Malignant neoplasm of small intestine, unspecified (principal); C79.9 Secondary malignant neoplasm of unspecified site; K21.9 Gastro-esophageal reflux disease without esophagitis; Z01.812 Encounter for preprocedural laboratory examination

== ENCOUNTER → 2017-07-24 11:15 | Outpatient (CLI) | payer MEDICARE, BC ==
[2017-07-03 07:55] VITALS: BMI 28.9
[~2017-07-24 11:15] MED LIST changes: +ZOFRAN4 MG PO
== END | disposition home or self-care (01) ==
LOC: D.MRI 11:15
DX: C17.1 Malignant neoplasm of jejunum (principal)

== ENCOUNTER → 2017-08-21 08:02 | Outpatient (CLI) | payer MEDICARE, BC ==
[2017-07-03 07:55] VITALS: BMI 28.9
== END | disposition home or self-care (01) ==
LOC: D.CT 08:00
DX: C17.1 Malignant neoplasm of jejunum (principal)

== ENCOUNTER → 2018-02-10 08:19 | Outpatient (CLI) | payer MEDICARE, BC ==
[2017-07-03 07:55] VITALS: BMI 28.9
== END | disposition home or self-care (01) ==
LOC: D.CT 08:19
DX: D50.9 Iron deficiency anemia, unspecified (principal); C17.1 Malignant neoplasm of jejunum

== ENCOUNTER → 2018-05-25 08:41 | Outpatient (CLI) | payer MEDICARE, BC ==
[2017-07-03 07:55] VITALS: BMI 28.9
== END | disposition home or self-care (01) ==
LOC: D.CT 08:41
DX: C17.1 Malignant neoplasm of jejunum (principal); D50.9 Iron deficiency anemia, unspecified

== ENCOUNTER → 2018-08-30 08:12 | Outpatient (CLI) | payer MEDICARE, BC ==
[2017-07-03 07:55] VITALS: BMI 28.9
== END | disposition home or self-care (01) ==
LOC: D.CT 08:12
DX: D50.9 Iron deficiency anemia, unspecified (principal); C17.1 Malignant neoplasm of jejunum; C78.7 Secondary malignant neoplasm of liver and intrahepatic bile duct; C78.00 Secondary malignant neoplasm of unspecified lung; T50.995A Adverse effect of other drugs, medicaments and biological substances, initial encounter

== ENCOUNTER → 2019-01-07 07:24 | Outpatient (CLI) | payer MEDICARE, BC ==
[2017-07-03 07:55] VITALS: BMI 28.9
== END | disposition home or self-care (01) ==
LOC: D.US 07:24
PROVIDERS: ATTEND Family Medicine
DX: R10.11 Right upper quadrant pain (principal)

== ENCOUNTER → 2019-01-21 09:11 | Outpatient (CLI) | payer MEDICARE, BC ==
[2017-07-03 07:55] VITALS: BMI 28.9
== END | disposition home or self-care (01) ==
LOC: D.NM 09:11
PROVIDERS: ATTEND Family Medicine
DX: R10.11 Right upper quadrant pain (principal)

== ENCOUNTER 2019-02-11 10:59 | Inpatient (IN) | payer MEDICARE, BC ==
[~2019-02-11] VITALS: Ht 154.9 cm; Wt 65.5 kg
--- NOTE | 2019-02-11 11:05 | NUR ---
PT HAS CHEMO INFUSION PUMP INFUSING @ 3ML/HR VIA LEFT CHEST IP. LEFT CHEST DRSG D/I.
--- NOTE | 2019-02-11 11:05 | NUR ---
FSBS CONVEYOR TENDER PER EMS= 127 MG/DL
--- NOTE | 2019-02-11 11:15 | NUR ---
TO CT VIA STRETCHER WITH TECH
[2019-02-11 11:23] VITALS: BP 145/79
--- NOTE | 2019-02-11 12:22 | NUR ---
LYNN FROM [facility] HERE TO D/C CHEMO INFUSION AND FLUSH IP.
[2019-02-11 12:35] VITALS: BP 148/69
[2019-02-11 12:47] LABS: BASOPHILS 0 % (0-2); EOSINOPHILS 0.1 % (0-7); HEMATOCRIT 31.5 % (36.0-48.0); HEMOGLOBIN 10.7 g/dL (12-16); IMMATURE GRANULOCYTES 0.1 % (0-5); LYMPHOCYTES 10.1 % (15-50); MCH 30.2 pg (26.0-34.0); MEAN PLATELET VOLUME 9.2 fL (7.4-10.4); MONOCYTES 3.9 % (2-11); NEUTROPHILS 85.8 % (40-80); PLATELET COUNT 110 10x3/uL (130-400); RBC 3.54 10x6/uL (4.00-5.40); RDW 17.7 % (11.5-14.5); WBC 6.9 10x3/uL (4.8-10.8)
[2019-02-11 12:53] LABS: ALBUMIN 2.8 g/dL (3.4-5.0); ALKALINE PHOSPHATASE 156 U/L (46-116); ALT (SGPT) 27 U/L (10-68); BILIRUBIN - TOTAL 0.95 mg/dL (0.2-1.3); CALC OSMOLALITY 269 mosm/kg (275-300); CALCIUM 9.2 mg/dL (8.5-10.1); CARBON DIOXIDE 23.8 mmol/L (21.0-32.0); CHLORIDE - SERUM 99 mmol/L (98-107); CREATININE - SERUM 0.8 mg/dL (0.6-1.3); GLUCOSE 115 mg/dL (74-106); POTASSIUM - SERUM 3.9 mmol/L (3.5-5.1); PROTEIN - SERUM 7.3 g/dL (6.4-8.2); SODIUM 132 mmol/L (136-145); UREA NITROGEN 24 mg/dL (7-18); eGFR NON AFRICAN AMERICAN 72 mL/min (90-120)
[2019-02-11 12:54] LABS: APPEARANCE CLEAR (CLEAR); BACTERIA FEW /hpf (NONE SEEN); BILIRUBIN NEGATIVE (NEGATIVE); COLOR YELLOW (YELLOW); EPITHELIAL CELLS OCC /hpf (0-5); GLUCOSE NEGATIVE (NEGATIVE); KETONE MODERATE mg/dL (NEGATIVE); MUCUS <1+ /lpf (NONE SEEN); NITRITE NEGATIVE (NEGATIVE); PROTEIN NEGATIVE (NEGATIVE); RED CELLS - URINE 0-5 /hpf (0-5); SPECIFIC GRAVITY 1.015 (1.005-1.020)
[2019-02-11 12:54] LABS: APTT 25.4 SECONDS (22.8-39.4)
[2019-02-11 12:55] LABS: INR 1.18 (0.85-1.17); PROTIME 14.5 SECONDS (11.6-15.0)
[2019-02-11 12:55] LABS: AMORPHOUS SEDIMENT <1+ /lpf (NONE SEEN)
--- NOTE | 2019-02-11 13:00 | NUR ---
EXPL POC TO FAMILY: AWAITING TX CTR TO FACILITY WITH NEUROSURGEON. VERB UNDER
[2019-02-11 13:08] LABS: CKMB 0.2 U/L (0.0-3.6); CREATINE KINASE 39 UL (21-215); MAGNESIUM - SERUM 1.8 mg/dL (1.8-2.4); THYROID STIMULATING HORMONE 1.13 uIU/mL (0.36-3.74)
[2019-02-11 13:10] VITALS: BP 135/67
[2019-02-11 13:10] LABS: TROPONIN-I < 0.017 ng/mL (0.000-0.060)
[2019-02-11 13:14] LABS: UDS - AMPHET NEGATIVE QUAL (NEGATIVE); UDS - BARB NEGATIVE QUAL (NEGATIVE); UDS - BENZO NEGATIVE QUAL (NEGATIVE); UDS - COCAINE NEGATIVE QUAL (NEGATIVE); UDS - OPIATE NEGATIVE QUAL (NEGATIVE); UDS - PCP NEGATIVE QUAL (NEGATIVE); UDS - THC NEGATIVE QUAL (NEGATIVE)
[2019-02-11 14:39] VITALS: BP 115/60
[2019-02-11 16:46] VITALS: BP 113/58
--- NOTE | 2019-02-11 18:02 | MORECARE ---
CASE MANAGEMENT DISCHARGE SUMMARY PATIENT: NINA CARBALLO UNIT: [id number] ADM DATE: 02/11/19 AGE: 88 : 32 SEX: F ROOM/BED: D.2206 AUTHOR: MARSHA FLORES PHYSICIAN: REFERRING PHYSICIAN: CRYSTAL RAMON MD DATE OF SERVICE: 02/11/19 Discharge Plan Patient Name: NINA CARBALLO [facility] [facility] 1930 Planned Disposition: Home Anticipated Discharge Date: 02/14/19 Discharge Date: Expected LOS: 3 Initial Reviewer: [email or web address] Initial Review Date: 02/11/2019 Generated: 02/11/19 7:02 pm DCPIA - Discharge Planning Initial Assessment Updated by [email or web address]: Kenzie Lieberman on 02/11/19 5:58 pm * Is the patient Alert and Oriented? No * How many steps to enter\exit or inside your home? None * PCP Dr. Woodruff * Pharmacy [facility] * Preadmission Environment Home Alone * ADLs Independent * Equipment None * List name and contact numbers for known caregivers / representatives who currently or will assist patient after discharge: Samantha Chinchilla [facility] - [phone] * Verbal permission to speak to the caregivers and representatives has been obtained from the patient. Yes * Community resources currently utilized None * Additional services required to return to the preadmission environment? No * Can the patient safely return to the preadmission environment? Yes * Has this patient been hospitalized within the prior 30 days at any hospital? No Patient Name: NINA CARBALLO Page [id number] at 1802 All edits/amendments must be made on the electronic document DICTATION DATE: 02/11/191800 CADASTRAL SURVEYOR: CHANI 02/11/191800 RPT#: [id number] DC DATE: STATUS: ADM IN [facility] [address] [place] [address] END OF REPORT
--- NOTE | 2019-02-11 18:11 | MORECARE ---
CASE MANAGEMENT DISCHARGE SUMMARY PATIENT: NINA CARBALLO UNIT: [id number] ADM DATE: 02/11/19 AGE: 88 : 32 SEX: F ROOM/BED: D.2206 AUTHOR: MARSHA FLORES PHYSICIAN: REFERRING PHYSICIAN: CRYSTAL RAMON MD DATE OF SERVICE: 02/11/19 Discharge Plan Patient Name: NINA CARBALLO Facility: [facility]:[place] : 1930 Planned Disposition: Home Anticipated Discharge Date: 02/14/19 Discharge Date: Expected LOS: 3 Initial Reviewer: [email or web address] Initial Review Date: 02/11/2019 Generated: 02/11/19 7:10 pm DCP- Discharge Planning Updated by [email or web address]: Kenzie Lieberman on 02/11/19 5:[address] Patient Name: NINA CARBALLO Admission Status: ER Accout number: [id number] Admission Date: 02-11-2019 : 1930 Admission Diagnosis: Attending: CRYSTAL RAMON Current LOS: 1 Anticipated DC Date: 02-14-2019 Planned Disposition: Home Primary Insurance: MEDICARE A & B Discharge Planning Comments: CM met with patient and her daughter, Samantha, to complete initial dc planning assessment. CM educated Samantha on the CM role and verbal consent given by Samantha to complete assessment. Patient confused at this time and unable to complete assessment. Patient lives at home alone and is independent with all ADL's and IADL's. Samantha reports her mother does not use any assisted devices and that she still drives herself everyday where she needs to go. She is very active. Samantha feels she will be able to return home alone once she clears up from this fall and feels this is a safe dc plan if she recovers to her baseline. CM discussed availability of home health, rehab services, and medical equipment. Patient denied known discharge needs at this time. CM will continue to follow and will assist as needed with dc plans/needs. Billboard Installer: Kenzie Lieberman RN, [facility] DCPIA - Discharge Planning Initial Assessment Updated by [email or web address]: Kenzie Lieberman on 02/11/19 5:58 pm * Is the patient Alert and Oriented? No * How many steps to enter\exit or inside your home? None * PCP Dr. Woodruff * [facility] [place] * Preadmission Environment Home Alone * ADLs Independent * Equipment None * List name and contact numbers for known caregivers / representatives who currently or will assist patient after discharge: Samantha Chinchilla dtr - [phone] * Verbal permission to speak to the caregivers and representatives has been obtained from the patient. Yes * Community resources currently utilized None * Additional services required to return to the preadmission environment? No * Can the patient safely return to the preadmission environment? Yes * Has this patient been hospitalized within the prior 30 days at any hospital? No Last DP export: 02/11/19 5:02 p Patient Name: NINA CARBALLO Page [id number] at 1811 All edits/amendments must be made on the electronic document DICTATION DATE: 02/11/191809 AIRCRAFT ENGINE INSTALLER: CHANI 02/11/191809 RPT#: [id number] DC DATE: STATUS: ADM IN [facility] [address] [place] [address] END OF REPORT
--- NOTE | 2019-02-11 18:44 | NUR ---
REPORT CALLED TO LYNN VELEZ BY SBAR FORMAT
--- NOTE | 2019-02-11 19:31 | NUR ---
PT ARRIVED ON UNIT VIA STRETCHER ESCORTED BY ER STAFF AND FAMILY MEMBER. TRANSFERRED TO BED AND POSITIONED FOR COMFORT. PT HAS BRUISING ON LEFT FOREHEAD AND BILATERAL CHEEKS. PARTIAL UPPER DENTURE IN PLACE. IV IN RIGHT HAND PATENT WITH NS INFUSING AT ROCEPHIN IVPB INFUSING. CONTINUED IV FLUIDS PER ORDERS. LEFT INFUSAPORT ACCESSED AND SALINE LOCKED.
--- NOTE | 2019-02-11 20:20 | NUR ---
PLACED TELEMETRY ON PT PER ORDER AND READING 63 SR AT THIS ASSESSMENT.
[2019-02-11 22:08] VITALS: BP 116/61; Ht 154.9 cm; Wt 65.5 kg
--- NOTE | 2019-02-11 22:50 | NUR ---
ADMISSION ASSESSMENT AND HISTORY COMPLETE.
[2019-02-11] MEDS ORDERED: LONSURF (23:15)
[2019-02-11] MEDS ORDERED: ULTRAM50 MG PO (23:16)
[2019-02-12 00:53] VITALS: BP 112/70
--- NOTE | 2019-02-12 03:45 | NUR ---
PT C/O CHEST PAIN...HAS NOT USED DRINK BOX MECHANIC IN A WHILE...ENCOURAGED USE AND EXPLAINED THAT EKG EALIER WAS NORMAL AND THAT SHE HAD FRACTURES IN HER SHOULDER. FEELING BETTER AFTER DILAUDID FROM DRINK BOX MECHANIC.
--- NOTE | 2019-02-12 04:00 | NUR ---
CALLED LINDY, PT'S DAUGHTER...SHE WANTS HER DAUGHTER TO COME BACK TO HOSPITAL TO SIT WITH HER.
[2019-02-12 05:42] LABS: BASOPHILS 0.5 % (0-2); EOSINOPHILS 0.3 % (0-7); HEMATOCRIT 28.9 % (36.0-48.0); HEMOGLOBIN 9.8 g/dL (12-16); IMMATURE GRANULOCYTES 0.3 % (0-5); LYMPHOCYTES 21.8 % (15-50); MCH 30.2 pg (26.0-34.0); MCHC 33.9 g/dL (31.0-37.0); MCV 88.9 fL (80.0-100.0); MEAN PLATELET VOLUME 9.9 fL (7.4-10.4); MONOCYTES 2.3 % (2-11); NEUTROPHILS 74.8 % (40-80); PLATELET COUNT 99 10x3/uL (130-400); RBC 3.25 10x6/uL (4.00-5.40); RDW 17.5 % (11.5-14.5)
[2019-02-12 05:49] LABS: WBC 3.9 10x3/uL (4.8-10.8)
[2019-02-12 06:01] VITALS: BP 110/56
[2019-02-12 06:01] LABS: ALBUMIN 2.4 g/dL (3.4-5.0); ALKALINE PHOSPHATASE 130 U/L (46-116); ALT (SGPT) 22 U/L (10-68); BILIRUBIN - TOTAL 0.89 mg/dL (0.2-1.3); CALC OSMOLALITY 270 mosm/kg (275-300); CALCIUM 8.8 mg/dL (8.5-10.1); CARBON DIOXIDE 23.7 mmol/L (21.0-32.0); CHLORIDE - SERUM 101 mmol/L (98-107); CREATININE - SERUM 0.6 mg/dL (0.6-1.3); GLUCOSE 87 mg/dL (74-106); POTASSIUM - SERUM 3.5 mmol/L (3.5-5.1); PROTEIN - SERUM 6.2 g/dL (6.4-8.2); SODIUM 135 mmol/L (136-145); UREA NITROGEN 19 mg/dL (7-18); eGFR NON AFRICAN AMERICAN > 90 mL/min (90-120)
[2019-02-12 09:08] VITALS: BP 117/59
[2019-02-12 12:53] VITALS: BP 119/62
--- NOTE | 2019-02-12 13:50 | NUR ---
RECEIVED REPORT FROM ANNAMARIA TO TAKE OVER HER PATIENT AT THIS TIME, PT IS IN STABLE CONDITON, NO SIGNS OF DISTRESS NOTED, CL IN REACH
[2019-02-12 18:39] VITALS: BP 121/66
[2019-02-12 19:53] VITALS: BP 115/53
[2019-02-13 00:59] VITALS: BP 120/61
[2019-02-13 04:58] VITALS: BP 109/55
[2019-02-13 09:26] VITALS: BP 122/68
[2019-02-13 13:27] VITALS: BP 125/61
[2019-02-13 18:09] VITALS: BP 114/62
--- NOTE | 2019-02-13 19:00 | NUR ---
REPORT RECEIVED AND CARE OF PT ASSUMED. PT LYING IN SUPINE POSITION VISITING WITH DAUGHTER. IV IN RIGHT HAND PATENT WITH NS INFUSING AT 75 ML / HR. TELEMETRY IN PLACE AND READING 64 SR AT THIS ASSESSMENT. WILL MONITOR FOR NEEDS. DAUGHTER IS AT BEDSIDE.
--- NOTE | 2019-02-13 19:51 | NUR ---
I have reviewed this patient and I concur with the Shift Assessment completed by the Licensed Practical Nurse today this shift.
--- NOTE | 2019-02-13 20:43 | NUR ---
HS MEDICATIONS GIVEN TO INCLUDE TYLENOL PO PER REQUEST FOR HEADACHE. WILL CONTINUE TO MONITOR FOR NEEDS. DAUGHTER IS AT BEDSIDE.
[2019-02-13 21:05] VITALS: BP 116/62
--- NOTE | 2019-02-13 23:20 | NUR ---
IV LEAKING. REMOVED WITH CATHETER TIP INTACT. RE-SITED TO RIGHT FA USING 22 GUAGE CATHETER IN ONE STICK. IV FLUIDS RE-STARTED.
[2019-02-14] VITALS (13 sets, daily range): BP systolic 109–130; BP diastolic 55–64
[2019-02-14 05:14] LABS: HEMATOCRIT 26.9 % (36.0-48.0); HEMOGLOBIN 9.1 g/dL (12-16); MCHC 33.8 g/dL (31.0-37.0); MCV 88.8 fL (80.0-100.0); MEAN PLATELET VOLUME 9.8 fL (7.4-10.4); RBC 3.03 10x6/uL (4.00-5.40); WBC 2.7 10x3/uL (4.8-10.8)
[2019-02-14 05:18] LABS: PLATELET COUNT 69 10x3/uL (130-400)
[2019-02-14 05:45] LABS: ALBUMIN 2.1 g/dL (3.4-5.0); ALKALINE PHOSPHATASE 152 U/L (46-116); ALT (SGPT) 17 U/L (10-68); BILIRUBIN - TOTAL 0.49 mg/dL (0.2-1.3); CALC OSMOLALITY 277 mosm/kg (275-300); CALCIUM 8.2 mg/dL (8.5-10.1); CARBON DIOXIDE 24.8 mmol/L (21.0-32.0); CHLORIDE - SERUM 107 mmol/L (98-107); CREATININE - SERUM 0.6 mg/dL (0.6-1.3); GLUCOSE 99 mg/dL (74-106); POTASSIUM - SERUM 3.1 mmol/L (3.5-5.1); PROTEIN - SERUM 5.3 g/dL (6.4-8.2); SODIUM 140 mmol/L (136-145); UREA NITROGEN 9 mg/dL (7-18); eGFR NON AFRICAN AMERICAN > 90 mL/min (90-120)
[2019-02-14 06:34] LABS: EOSINOPHILS 2 % (0-7); LYMPHOCYTES 37 % (15-50); MONOCYTES 6 % (2-11); NEUTROPHILS 55 % (40-80); PLATELET ESTIMATE DECREASED
--- NOTE | 2019-02-14 19:31 | NUR ---
PATIENT RESTING IN BED WITH DAUGHTER AT BEDSIDE AND NO S/S OF DISTRESS. PATIENT C/O 01/26 HEADACHE. OFFERED PATIENT TYLENOL FOR PAIN AND SHE AGREED. PATIENT DENIES OTHER NEEDS AT THIS TIME. BED IN LOWEST POSITION AND CALL LIGHT WITHIN REACH. WILL ADMINISTER TYLENOL PER ORDERS.
--- NOTE | 2019-02-14 21:13 | NUR ---
PATIENT'S DAUGHTER REQUESTED FOR THE PATIENT'S BED ALARM TO BE TURNED OFF. I EXPLAINED TO THE PATIENT THAT PER POLICY SHE WOULD NEED TO SIGN A WAIVER FORM TO RELEASE THE HOSPITAL AND EMPLOYEES FROM LIABILITY IF THE PATIENT WERE TO GET INJURED. THE PATIENT AND HER DAUGHTER VERBALIZED UNDERSTANDING. SIGNED RELEASE FORM IS ON THE PATIENT CHART.
[2019-02-15] VITALS: BP 119/58
[2019-02-15 04:00] VITALS: BP 151/63
[2019-02-15 07:52] LABS: ALBUMIN 2.2 g/dL (3.4-5.0); ALKALINE PHOSPHATASE 178 U/L (46-116); ALT (SGPT) 20 U/L (10-68); BILIRUBIN - TOTAL 0.71 mg/dL (0.2-1.3); CALC OSMOLALITY 276 mosm/kg (275-300); CALCIUM 8.6 mg/dL (8.5-10.1); CARBON DIOXIDE 27.5 mmol/L (21.0-32.0); CHLORIDE - SERUM 108 mmol/L (98-107); CREATININE - SERUM 0.6 mg/dL (0.6-1.3); GLUCOSE 105 mg/dL (74-106); POTASSIUM - SERUM 3.4 mmol/L (3.5-5.1); PROTEIN - SERUM 5.5 g/dL (6.4-8.2); SODIUM 140 mmol/L (136-145); UREA NITROGEN 8 mg/dL (7-18); eGFR NON AFRICAN AMERICAN > 90 mL/min (90-120)
[2019-02-15 07:54] LABS: BASOPHILS 0.3 % (0-2); EOSINOPHILS 5.5 % (0-7); HEMATOCRIT 29.8 % (36.0-48.0); HEMOGLOBIN 10.1 g/dL (12-16); IMMATURE GRANULOCYTES 0.5 % (0-5); LYMPHOCYTES 10.3 % (15-50); MCH 29.9 pg (26.0-34.0); MCHC 33.9 g/dL (31.0-37.0); MCV 88.2 fL (80.0-100.0); MEAN PLATELET VOLUME 9.3 fL (7.4-10.4); MONOCYTES 1.3 % (2-11); NEUTROPHILS 82.1 % (40-80); PLATELET COUNT 65 10x3/uL (130-400); RBC 3.38 10x6/uL (4.00-5.40); RDW 16.6 % (11.5-14.5); WBC 6.2 10x3/uL (4.8-10.8)
--- NOTE | 2019-02-15 08:00 | NUR ---
AWAKE AND ALERT. ORIENTED X3. ATE ALL OF BREAKFAST. DENIES NEEDS. LUNGS ARE CLEAR BILATERALLY, NO COUGH NOTED. SKIN IS INTACT WITHOUT REDNESS. SL TO RIGHT FOREARM IS PATENT WITHOUT REDNESS AT INSERTION SITE. DAUGHTER AT BEDSIDE.
[2019-02-15 09:14] VITALS: BP 114/64
--- NOTE | 2019-02-15 11:45 | NUR ---
REQUESTED AND GIVEN 650MG TYLENOL PO FOR C/O HEADACHE. WILL MONITOR. DAUGHTER AT BEDSIDE.
[2019-02-15 13:45] VITALS: BP 110/54
--- NOTE | 2019-02-15 15:01 | NUR ---
RESTING QUIETLY WITH EYES CLOSED. DENIES NEEDS.
[2019-02-15 16:55] VITALS: BP 104/55
--- NOTE | 2019-02-15 19:34 | NUR ---
ATE ALMOST ALL OF SUPPER. NO CHANGES NOTED. DENIES NEEDS.
[2019-02-15 20:00] VITALS: BP 146/65
[2019-02-16] VITALS: BP 137/74
[2019-02-16 04:00] VITALS: BP 122/65
[2019-02-16 06:11] LABS: BASOPHILS 0.2 % (0-2); EOSINOPHILS 4.7 % (0-7); HEMATOCRIT 28.6 % (36.0-48.0); HEMOGLOBIN 9.8 g/dL (12-16); IMMATURE GRANULOCYTES 1.2 % (0-5); LYMPHOCYTES 9.7 % (15-50); MCH 30.3 pg (26.0-34.0); MCHC 34.3 g/dL (31.0-37.0); MCV 88.5 fL (80.0-100.0); MONOCYTES 1.6 % (2-11); NEUTROPHILS 82.6 % (40-80); PLATELET COUNT 65 10x3/uL (130-400); RBC 3.23 10x6/uL (4.00-5.40); RDW 16.6 % (11.5-14.5); WBC 5.1 10x3/uL (4.8-10.8)
[2019-02-16 07:50] LABS: PLATELET ESTIMATE DECREASED
[2019-02-16 07:51] LABS: ANISOCYTOSIS OCC; HYPOCHROMASIA OCC; ROULEAUX OCC
--- NOTE | 2019-02-16 07:54 | NUR ---
2000) EYES CLOSED RESP DEEP AND EVEN DTR AT BEDSIDE.WILL CONTINUE TO MONITOR FOR ANY CHGES AND FOLLOW CURRENT PLAN OF CARE.
--- NOTE | 2019-02-16 08:00 | NUR ---
AWAKE AND ALERT. ORIENTED X3. NO C/O AT THIS TIME. LUNGS ARE CLEAR BILATERALLY, NO COUGH NOTED. SKIN IS INTACT WITHOUT REDNESS. SL TO RIGHT FOREARM IS PATENT WITHOUT REDNESS AT INSERTION SITE. DAUGHTER AT BEDSIDE. DENIES NEEDS.
[2019-02-16 09:00] VITALS: BP 123/63
--- NOTE | 2019-02-16 10:10 | MORECARE ---
CASE MANAGEMENT DISCHARGE SUMMARY PATIENT: NINA CARBALLO UNIT: [id number] ADM DATE: 02/11/19 AGE: 88 : 32 SEX: F ROOM/BED: D.2206 AUTHOR: MARSHA FLORES PHYSICIAN: REFERRING PHYSICIAN: CRYSTAL RAMON MD DATE OF SERVICE: 02/16/19 Discharge Plan Patient Name: NINA CARBALLO Facility: [facility]:[place] : 1930 Planned Disposition: Home Anticipated Discharge Date: 02/14/19 Discharge Date: Expected LOS: 3 Initial Reviewer: [email or web address] Initial Review Date: 02/11/2019 Generated: 02/16/19 11:09 am Comments DCP- Discharge Planning Updated by [email or web address]: Martine Mccullough on 02/16/19 9:[address] Patient is discharging home today. I met with patient and daughter and they did not need anything. Did not want home health. Her daughter will be driving her home and said she will be staying with her to make sure she is ok tonight. IMM served and explained DCP- Discharge Planning Updated by [email or web address]: Kenzie Lieberman on 02/11/19 5:[address] Patient Name: NINA CARBALLO Admission Status: ER Accout number: [id number] Admission Date: 02-11-2019 : 1930 Admission Diagnosis: Attending: CRYSTAL RAMON Current LOS: 1 Anticipated DC Date: 02-14-2019 Planned Disposition: Home Primary Insurance: MEDICARE A & B Discharge Planning Comments: CM met with patient and her daughter, Samantha, to complete initial dc planning assessment. CM educated Samantha on the CM role and verbal consent given by Samantha to complete assessment. Patient confused at this time and unable to complete assessment. Patient lives at home alone and is independent with all ADL's and IADL's. Samantha reports her mother does not use any assisted devices and that she still drives herself everyday where she needs to go. She is very active. Samantha feels she will be able to return home alone once she clears up from this fall and feels this is a safe dc plan if she recovers to her baseline. CM discussed availability of home health, rehab services, and medical equipment. Patient denied known discharge needs at this time. CM will continue to follow and will assist as needed with dc plans/needs. Plant Operations Vice President: Kenzie Lieberman RN, [facility] DCPIA - Discharge Planning Initial Assessment Updated by [email or web address]: Kenzie Lieberman on 02/11/19 5:58 pm * Is the patient Alert and Oriented? No * How many steps to enter\exit or inside your home? None * PCP Dr. Woodruff * Pharmacy [facility] the [facility] * Preadmission Environment Home Alone * ADLs Independent * Equipment None * List name and contact numbers for known caregivers / representatives who currently or will assist patient after discharge: Samantha Chinchilla - r - [phone] * Verbal permission to speak to the caregivers and representatives has been obtained from the patient. Yes * Community resources currently utilized None * Additional services required to return to the preadmission environment? No * Can the patient safely return to the preadmission environment? Yes * Has this patient been hospitalized within the prior 30 days at any hospital? No Coverage Notice Reviewer: [email or web address] Katiana Mccullough Notice Issued Date-Time: 02/16/2019 10:00 Notice Type: IM Discharge Notice Notice Delivered To: Patient Relationship to Patient: Auto Emissions Technician Name: Delivery Method: HAND - Hand Delivered Rekha Days: Prior Verbal Notification: Recipient Understood Notice: Yes Recipient Signature: Yes Med Rec Note Co-signed by Attending: Coverage Notice Comment: Last DP export: 02/11/19 5:11 p Patient Name: NINA CARBALLO Page [id number] at 1010 All edits/amendments must be made on the electronic document DICTATION DATE: 02/16/19 1009 FOREST LAW AND POLICY PROFESSOR: DM 02/16/19 1009 RPT#: [id number] DC DATE: STATUS: ADM IN [facility] [address] [place] [address] END OF REPORT
--- NOTE | 2019-02-16 10:29 | NUR ---
C/O NAUSEA. REGUESTED AND GIVEN 4MG ZOFRAN SLOW IVP. WILL MONITOR.
--- NOTE | 2019-02-16 12:00 | NUR ---
RESTING QUIETLY IN BED WITH EYES CLOSED. NO C/O NAUSEA AT THIS TIME.
[2019-02-16 13:14] VITALS: BP 138/69; BP 150/55
--- NOTE | 2019-02-16 13:17 | NUR ---
DISCHARGED TO HOME WITH DAUGHTER AMBULATORY. DISCHARGE INSTRUCTIONS GIVEN BOTH VERBALLY AND WRITTEN. ALL QUESTIONS ANSWERED. PATIENT AND DAUGHTER VERBALIZED UNDERSTANDING OF SAME. IV TO RIGHT FOREARM D/C WITH CATHETER INTACT. LEFT PORT HEPRANIZED PRIOR TO DEACCESSINGS. ALL BELONGING WITH PATIENT.
--- NOTE | 2019-02-16 13:30 | NUR ---
DISCHARGED TO HOME.
== END 2019-02-16 13:31 | disposition home or self-care (01) | DRG 86 ==
LOC: D.ER 10:59 → D.EDHOLD 12:22 → OBSVTIME 12:26 → D.EDHOLD 12:36 → D.MS 12:45 → D.EDHOLD 15:28 → D.MS 15:28
PROVIDERS: Emergency Medicine; Internal Medicine Hematology & Oncology; ADMIT Internal Medicine Medical Oncology; ATTEND Internal Medicine Medical Oncology
DX: S06.5X0A Traumatic subdural hemorrhage without loss of consciousness, initial encounter (principal); N39.0 Urinary tract infection, site not specified; C18.9 Malignant neoplasm of colon, unspecified; C78.4 Secondary malignant neoplasm of small intestine; X58.XXXA Exposure to other specified factors, initial encounter; Y93.9 Activity, unspecified; Y92.9 Unspecified place or not applicable; Y99.9 Unspecified external cause status; R13.10 Dysphagia, unspecified; R41.82 Altered mental status, unspecified; S01.01XA Laceration without foreign body of scalp, initial encounter; S01.81XA Laceration without foreign body of other part of head, initial encounter; W19.XXXA Unspecified fall, initial encounter; Z91.81 History of falling; Y92.013 Bedroom of single-family (private) house as the place of occurrence of the external cause; I69.820 Aphasia following other cerebrovascular disease; I69.821 Dysphasia following other cerebrovascular disease; D69.6 Thrombocytopenia, unspecified; D70.1 Agranulocytosis secondary to cancer chemotherapy